=== PATIENT | male | born 2000 | race Caucasian/White ===

== ENCOUNTER 2019-08-22 10:31 | Emergency (ER) | payer BC ==
[2019-08-22 11:18] VITALS: BP 134/94
--- NOTE | 2019-08-22 11:56 | ED ---
GI/ HPI - HPI Summary HPI Summary: 19 yr old male with the complaint of bruise right side shaft of penis. Onset of symptoms two days ago. He had vaginal intercourse unprotected, and following morning noticed a small bruise, red jac shaft of penis. No pain or swelling. No drainage or dysuria. No testicular swelling. No groin pain. No fever, chills or rash or sore throat. - History of Current Complaint Chief Complaint: [facility] [place] Time Seen by Provider: 08/22/19 11:20 Stated Complaint: PERSONAL Pain Intensity: 0 - Allergy/Home Medications Allergies/Adverse Reactions: Allergies Allergy/AdvReac Type Severity Reaction Status Date / Time No Known Allergies Allergy Verified 08/22/19 11:14 Home Medications: Home Medications NK [No Home Medications Reported] 08/22/19 [History Confirmed 08/22/19] PMH/Surg Hx/FS Hx/Imm Hx - Surgical History Surgery Procedure, Year, and Place: WISDOM TEETH EXTRACTION Infectious Disease History: No Infectious Disease History: Denies: Traveled Outside the [place] in Last 30 Days - Family History Known Family History: Positive: None Negative: Diabetes - Social History Occupation: Student Alcohol Use: Occasionally Substance Use Type: Reports: None Smoking Status (MU): Never Smoked Tobacco Review of Systems Constitutional: Negative Positive: other - bruise shaft of penis right side All Other Systems Reviewed And Are Negative: Yes Physical Exam Triage Information Reviewed: Yes Vital Signs On Initial Exam: Initial Vitals Temp Pulse Resp BP Pulse Ox 99 F 75 16 134/94 100 08/22/19 11:14 08/22/19 11:14 08/22/19 11:14 08/22/19 11:14 08/22/19 11:14 Vital Signs Reviewed: Yes Appearance: Positive: Well-Appearing, No Pain Distress Skin: Positive: Warm, Skin Color Reflects Adequate Perfusion Head/Face: Positive: Normal Head/Face Inspection Eyes: Positive: EOMI, LAUREEN ENT: Positive: Normal ENT inspection Neck: Positive: Nontender Respiratory/Lung Sounds: Positive: Clear to Auscultation, Breath Sounds Present Cardiovascular: Positive: RRR. Negative: Murmur Abdomen Description: Positive: Nontender, No Organomegaly. Negative: Distended Male Genital Exam: Positive: Normal Genitalia, No Hernia, Other - shaft of penis on the right side with a bruise/abrasion appearing jac about 1.5 cm in length and .5 cm in diameter. No discharge, no vesicles and non tender.. Negative: Epididymal Tenderness, Hernia Mass, Inguinal Tenderness, Scrotum Tenderness (R), Scrotum Tenderness (L), Testicular Tenderness (R), Testicular Tenderness (L), Urethral Discharge Musculoskeletal: Positive: Strength/ROM Intact Neurological: Positive: Sensory/Motor Intact, Alert, Oriented to Person Place, Time, CN Intact II-III Psychiatric: Positive: Normal Diagnostics - Vital Signs Vital Signs Temp Pulse Resp BP Pulse Ox 08/22/19 11:14 99 F 75 16 134/94 100 - Laboratory Lab Statement: Any lab studies that have been ordered have been reviewed, and results considered in the medical decision making process. GIGU Course/Dx - Course Course Of Treatment: 19 yr old with likely bruise/ abrasion after intercourse. Plan DC home. STD screening done per his request. - Diagnoses Provider Diagnoses: Abrasion of penis, initial encounter Discharge ED - Sign-Out/Discharge Documenting (check all that apply): Patient Departure All imaging exams completed and their final reports reviewed: No Studies - Discharge Plan Condition: Good Disposition: HOME Patient Education Materials: Abrasion (ED), Contusion in Adults (ED), Hypertension (ED) Referrals: No Primary Care Phys,NOPCP [Primary Care Provider] - [facility] [Outside] - 2 Days - Billing Disposition and Condition Condition: GOOD Disposition: Home
[2019-08-22 21:05] LABS: HIV 4th Generation Nonreactive (Nonreactive)
[2019-08-23 13:31] LABS: Chlamydia trachomatis NAA Negative (Negative); Neisseria gonorrhoeae (GC) NAA Negative (Negative)
== END 2019-08-22 12:03 | disposition home or self-care (01) ==
LOC: UCCORT 10:31
DX: S30.812A Abrasion of penis, initial encounter (principal); X58.XXXA Exposure to other specified factors, initial encounter; Y93.89 Activity, other specified; Y92.9 Unspecified place or not applicable
CPT/HCPCS: 36415; 86780; 87389; 87491; 87591; 99211; G0463